=== PATIENT | female | born 1995 | race Caucasian/White ===

== ENCOUNTER 2019-05-21 13:52 | Outpatient (CLI) | payer BC, SELFPAY ==
[2019-05-21 14:39] LABS: HCT 38.8 % (36.0-46.0); HGB 13.2 g/dL (12.0-15.5); Mean Corpuscular Hemoglobin 30.3 pg (27.0-33.0); Mean Platelet Volume 9.6 fL (8.0-11.0); Platelet Count 292 x1000/uL (130-400); RBC 4.36 m/cumm (4.00-5.20); RBC Distribution Width 13.2 % (11.7-14.6); White Blood Cell Count 6.61 k/cumm (4.4-10.8)
[2019-05-21 15:28] LABS: ALT 19 U/L (14-59); AST 12 U/L (15-37); Albumin 3.9 g/dL (3.4-5.0); Alkaline Phosphatase 58 U/L (46-116); Anion Gap 9.3 mmol/L (3-11); BUN 15 mg/dL (7-18); Bilirubin, Total 0.3 mg/dL (0.2-1.0); CO2 27.7 mmol/L (21.0-32.0); CREATININE 0.49 mg/dL (0.55-1.02); Calcium 8.8 mg/dL (8.5-10.1); Chloride 101 mmol/L (98-107); Glucose 99 mg/dL (70-100); Potassium 4.1 mmol/L (3.5-5.1); Sodium 138 mmol/L (136-145); Total Protein 6.9 g/dL (6.4-8.2)
== END 2019-05-21 14:12 ==
PROVIDERS: PCP Nurse Practitioner Family; Visit Provider Obstetrics & Gynecology Gynecology
DX: R50.9 Fever, unspecified (principal); R11.0 Nausea; Z34.91 Encounter for supervision of normal pregnancy, unspecified, first trimester
CPT/HCPCS: 36415; 80053; 85027

== ENCOUNTER 2019-05-22 16:53 | Outpatient (REF) | payer BC, SELFPAY | END 2019-05-22 17:13 | LOC: LBN 16:53 | PROVIDERS: PCP Nurse Practitioner Family; Visit Provider Advanced Practice Midwife | DX: Z34.91 Encounter for supervision of normal pregnancy, unspecified, first trimester (principal) | CPT/HCPCS: 87086 ==

== ENCOUNTER 2019-06-06 13:56 | Outpatient (CLI) | payer BC, SELFPAY ==
[2019-06-07 11:13] LABS: Hepatitis B Surface Ag Negative (NEGAT)
[2019-06-07 12:05] LABS: Hepatitis C Ab w Rflx HCV PCR Negative (NEGAT)
[2019-06-07 12:37] LABS: HIV-1/2 Ag & Ab Screen Negative (NEGAT)
[2019-06-07 13:55] LABS: Rubella IgG Ab (UVM) Positive; Varicella IgG Antibody Negative
== END 2019-06-06 14:16 ==
PROVIDERS: PCP Nurse Practitioner Family; Visit Provider Advanced Practice Midwife
DX: Z34.91 Encounter for supervision of normal pregnancy, unspecified, first trimester (principal); Z11.4 Encounter for screening for human immunodeficiency virus [HIV]; Z11.59 Encounter for screening for other viral diseases; Z01.84 Encounter for antibody response examination
CPT/HCPCS: 36415; 86787; 86803; 86850; 86900; 86901; 87340; 87389; 84443; 86762

== ENCOUNTER 2019-07-18 00:34 | Outpatient (CLI) | payer BC, SELFPAY ==
--- NOTE | 2019-07-18 14:11 | DI.US_ITS ---
EXAM: US OB 2-3 TRIMESTER CLINICAL HISTORY: ROUTINE PNC, Z34.90 TECHNIQUE: Ultrasound performed using standard protocol. OB ultrasound was performed utilizing 2nd trimester protocol. COMPARISON: ABDOMEN ULTRASOUND (P) from 09/17/2015 FINDINGS: biometry is consistent with gestational age of 18 weeks 2 days and EDC of 12/17/2019. Placenta is anterior with no evidence of placenta previa. There is visually a normal quantity of amniotic fl uid. anomaly screen is within normal limits as per the attached checklist. cardiac acti vity observed at a rate of 145 BPM.
== END 2019-07-18 00:54 ==
PROVIDERS: Visit Provider Advanced Practice Midwife
DX: Z34.92 Encounter for supervision of normal pregnancy, unspecified, second trimester (principal)
CPT/HCPCS: 76805

== ENCOUNTER 2019-07-19 08:43 | Outpatient (CLI) | payer BC, SELFPAY ==
[2019-07-19 09:04] LABS: Kit/Specimen SENT
== END 2019-07-19 09:03 ==
PROVIDERS: Visit Provider Advanced Practice Midwife
DX: Z34.92 Encounter for supervision of normal pregnancy, unspecified, second trimester (principal); Z36.89 Encounter for other specified antenatal screening
CPT/HCPCS: 36415

== ENCOUNTER 2019-09-24 15:10 | Outpatient (CLI) | payer BC, SELFPAY ==
[2019-09-24 15:35] LABS: HCT 38.1 % (36.0-46.0); Mean Corp. HGB Concentration 34.1 g/dL (32.0-36.0); Mean Corpuscular Hemoglobin 31.1 pg (27.0-33.0); Mean Corpuscular Volume 91.1 fL (80-95); Mean Platelet Volume 9.6 fL (8.0-11.0); Platelet Count 235 x1000/uL (130-400); RBC 4.18 m/cumm (4.00-5.20); RBC Distribution Width 13.4 % (11.7-14.6); White Blood Cell Count 8.56 k/cumm (4.4-10.8)
[2019-09-24 15:43] LABS: Glucose,1 Hr (Glucola) 70 mg/dL (80-140)
== END 2019-09-24 15:30 ==
PROVIDERS: PCP Nurse Practitioner Family; Visit Provider Advanced Practice Midwife
DX: Z34.92 Encounter for supervision of normal pregnancy, unspecified, second trimester (principal)
CPT/HCPCS: 36415; 82950; 85027

== ENCOUNTER 2019-11-18 00:01 | Inpatient (IN) | payer BC, SELFPAY ==
[2019-11-18 02:15] LABS: HCT 37.7 % (36.0-46.0); HGB 13.2 g/dL (12.0-15.5); Mean Corpuscular Hemoglobin 31.1 pg (27.0-33.0); Mean Corpuscular Volume 88.9 fL (80-95); Mean Platelet Volume 11.1 fL (8.0-11.0); Platelet Count 241 x1000/uL (130-400); RBC 4.24 m/cumm (4.00-5.20); RBC Distribution Width 12.7 % (11.7-14.6); White Blood Cell Count 10.07 k/cumm (4.4-10.8)
--- NOTE | 2019-11-18 04:01 | HPE_ITS ---
Date of service: 11/18/19 Time of Service: 04:02 Assessment and Plan Assessment and plan (1) Fetus or affected by transverse lie during labor and delivery: Status: Acute Assessment and plan: Patient has been consented for delivery risk and benefits of the procedure were discussed with patient and her . Plan is to proceed with a low transverse delivery. (2) labor: Status: Acute Assessment and plan: Patient will receive azithromycin in addition to c efazolin prior to her surgery. GBS status is unknown and will be tested at this time. Qualifiers: labor trimester: third trimester labor delivery status: without delivery Qualified Code(s): O60.03 - labor without delivery, t hird trimester History of Present Illness History of Present Illness Chief Complaint: Early active labor at 35.2 weeks EGA, transverse presentation Narrative: Patient is a 24-year-old G1, P0 female currently at 35 W2D EGA by a first arrest of pelvic ultrasound who presents in early active labor with spontaneous rupture membranes of clear amniotic fluid at 35.2 weeks EGA. On on admission the vaginal exam was worrisome for a non-vertex presentation bedside ultrasound confirmed transverse lie with spine down and head to the maternal left. Subjectively low amniotic fluid. After discussion with the patient regarding the risks of a transverse presentation in active labor she was consented for a low transverse delivery. I reviewed the risks of the procedure including the risk of infection damage to surrounding structures including ureters bowel bladder the risk of a alina to the baby skin at the time of delivery. Informed consent was obtained and her questions were answered. Review of Systems Constitutional Constitutional: Reports system reviewed and no additional complaints, except as documented Respiratory Respiratory: Reports system reviewed and no additional complaints, except as documented Gastrointestinal Comments: Patient had sips of water early in the evening Genitourinary Genitourinary: Reports system reviewed and no additional complaints, except as documented Musculoskeletal Musculoskeletal: Reports system reviewed and no additional complaints, except as documented Integumentary/Breasts Skin/Breast: Reports system reviewed and no additional complaints, except as d ocumented Psychiatric Psychiatric: Reports system reviewed and no additional complaints, except as documented [facility] Medical History (Updated 11/18/19 @ 04:08 by Daniela Russell MD) Anxiety (Acute) Arthralgia (Acute) Chronic fatigue and malaise (Acute) onset 19yo. No clear etiology. [place] [facility] [place] Depo-Provera contraceptive status (Acute 11/05/15) Depression (Chronic 01/28/16) Dysmenorrhea (Resolved) 2013. Onset after she changed from Implanon to Nexplanon. 10/06/2015 Nexplanon out. Started DepoProvera with resolution of bleeding and sx. Dyspareunia (Resolved) Sx improved after Nexplanon removed. Family history of blood clots (Chronic) Mother had PE neg w/u hypercoagulable state Fetus or affected by transverse lie during labor and delivery (Acute) GERD (gastroesophageal reflux disease) (Acute) medications have not been entirely effective History of myocarditis (Chronic) History of pericarditis (Chronic) Insomnia, unspecified (Acute 10/22/15) Trazodone did not work well in the past Joint swelling (Acute) Intermittent Low back pain, non-specific (Acute) Intermittent issue, responds well to muscle relaxant & PT Migraine (Acute) Migraine without aura and without status migrainosus, not intractable (Acute) 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 ? multifactorial. 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 Neuro- ophthalmology consult & brain MRI 09/2013 which was normal per radiology report Tobacco abuse (Acute 01/29/18) Visual field loss (Acute 09/10/15) R eye Surgical History Neck surgery Vein reconstruction at 1 year old Social History (Updated 04/23/18 @ 09:15 by Darcy Montalvo RN) Smoking/Tobacco Use Status: Current-Occasional Drug use: Never History History 1 Para 0 Hx # Term Pregnancies 0 Multiple births 0 Hx # Pregnancies 0 Ectopic pregnancies 0 AB induced 0 Hx Number of Living Children 0 AB spontaneous 0 Meds Home Medications and Allergies Home Medications Medication Instructions Recorded Confirmed Type prenat.vits,raghavendra,ntr-[id number] 1 tab PO DAILY 05/22/19 11/18/19 History Allergies Allergy/AdvReac Type Severity Reaction Status Date / Time capsaicin AdvReac Severe burning/itc Verified 10/08/19 16:00 ivania Exam Const General: no acute distress Resp Effort & Inspection: normal respiratory effort Auscultation: clear to auscultation bilaterally Cardio Rate: regular rate Rhythm: regular rhythm Manual OB Exam: dilated 3, effaced 50% and other (Transverse lie) Amniotic Fluid: clear Skin General skin exam: no rashes or lesions noted Extrem General: normal to inspection, full ROM and capillary refill normal Results Labs Result diagrams: 11/18/19 02:00 Labs: Laboratory Results - last 24 hr 11/18/19 11/18/19 02:00 02:00 WBC 10.07 RBC 4.24 Hgb 13.2 Hct 37.7 MCV 88.9 MCH 31.1 MCHC 35.0 RDW 12.7 Plt Count 241 MPV 11.1 H Patient ABO/Rh A Positive Antibody Screen Negative COVID-19 Screening Traveled to [place] from one of the affected countries or regions?: NO Recent travel in the [place] within the last 8 weeks?: No Recent out of the country travel within the last 8 weeks?: No Exposure or possible exposure to illness during travel?: No Had IN PERSON contact w/suspected or confirmed C-19 person: No Have you had the following symptoms in the past few days?: No
[2019-11-18] MEDS: AZITHROMYCIN 250 MG in Normal Saline 250 ML IVPB (04:05)
[2019-11-18] MEDS: Sodium Citrate 30 ML CUP PO (04:06)
[2019-11-18] MEDS: ceFAZolin 2 GM/50 ML BAG IVPB (04:55)
--- NOTE | 2019-11-18 05:34 | PLAC_PTH ---
PATIENT: Bernie Shields LOC: OBS U#:[id number] AGE/SX: 24/F ROOM: OBS.303 RE11/18/[address]: Daniela Russell : 1995 BED: A DIS: 11/22/2019 SPEC #: [id number] RECD: 11/18/19 16:26 STATUS: JALEN REQ #: [id number] CHRIS: 11/18/19 05:[address]: Stacey Erwin DEPT: Surgical Specimen RECD BY: Bill Morgan ENTERED: 11/18/19 16:30 SP TYPE: PLAC OTHR DR: Kelley Peña APRN Tissues: 1 - PLACENTA (3RD TRIMESTER) Procedures: GROSS AND MICRO LEVEL 5 Comments: [id number]
[2019-11-18] MEDS: Ketorolac 30 MG/ML VIAL IVP ×3 (07:50→19:49)
[2019-11-18] MEDS: Ondansetron 4 MG/2 ML VIAL IVP (07:50)
[2019-11-18] MEDS: Normal Saline Flush 10 ML SYR IVP ×3 (07:51→19:50)
[2019-11-18] MEDS: Lactated Ringers 1,000 ML 200 ML IV (11:30)
[2019-11-18 18:34] LABS: COVID-19 RT-PCR Result Negative (Negative)
[2019-11-19] MEDS: Ketorolac 30 MG/ML VIAL IVP (02:29)
[2019-11-19] MEDS: Normal Saline Flush 10 ML SYR IVP (02:30)
[2019-11-19 07:21] LABS: HCT 39.4 % (36.0-46.0); HGB 13.1 g/dL (12.0-15.5); Mean Corp. HGB Concentration 33.2 g/dL (32.0-36.0); Mean Corpuscular Hemoglobin 30.4 pg (27.0-33.0); Mean Corpuscular Volume 91.4 fL (80-95); Mean Platelet Volume 11.2 fL (8.0-11.0); Platelet Count 212 x1000/uL (130-400); RBC 4.31 m/cumm (4.00-5.20); RBC Distribution Width 13.4 % (11.7-14.6)
[2019-11-19] MEDS: oxyCODONE 5 mg/Acetaminophen 325 mg TAB PO ×4 (07:56→23:20)
--- NOTE | 2019-11-19 09:07 | W.PM.OP ---
Date of service: 11/18/19 Time of Service: 09:07 Operative Note Operative Note DATE OF PROCEDURE: 11/18/19 PRE-OP DIAGNOSIS: Intrauterine at 35.2 weeks EGA. Transverse lie POST-OP DIAGNOSIS: same PROCEDURE: Unscheduled low transverse delivery SURGEON: Daniela Russell [employer]OX STORAGE WORKER: Stacey Erwin ANESTHESIA: spinal ESTIMATED BLOOD LOSS: 500 PATHOLOGY: other (Placenta to pathology) COMPLICATIONS: None Patient was transported to: floor Patient's condition: stable Indications: 24-year-old female with spontaneous rupture membranes at 35+ W EGA. On presentation to the center she had confirmation of transverse lie spine head to the maternal left. Findings: Viable female infant who will be named Maricruz weighing 4 pounds 15 ounces (2230 g) Apgars 3 at 1 minute 6 at 5 minutes 9 at 10 minutes. Arterial blood gas pH 7.29, PCO2 56 PO2 55 base excess 0.4. Normal placenta normal uterus normal adnexa Procedure Description: Patient was taken to the operating room suite placed in the supine position and spinal anesthesia was administered without difficulty. Patient was placed in the dorsal supine position with a leftward tilt Tyler catheter was inserted to gravity drainage her vagina was prepped with Betadine and her abdomen was prepped ChloraPrep. She receives both cefazolin and azithromycin prior to skin incision. Once a adequate level of anesthesia was obtained a Pfannenstiel skin incision was made with a scalpel and the underlying subcutaneous tissue dissected with Bovie electrocautery to the level of the rectus fascia. Rectus fascia was nicked in the midline and the fascial incision was extended laterally with curved Morrell scissors. The rectus muscles were in the midline and the peritoneum was entered bluntly and the peritoneal incision extended laterally bluntly. A bladder blade was placed into the abdomen to retract the bladder from the operative field and a Metzenbaum scissors was used to incise the serosa of the uterus of the lower uterine segment and the bladder flap created digitally. Bladder blade was then repositioned and the bladder was retracted away from the operative field. Scalpel was used to incise the lower uterine segment in a transverse fashion. Upon entry into the uterine cavity the uterine incision was extended bluntly. The presenting part was arm. A gloved hand was placed into the uterus and attempt was made to deliver the head. However the head did not descend when corrected by delivering hand. The pelvic bones were located and the position was rotated to breech spine up and the buttocks and lower extremities were delivered without difficulty. Followed by a trunk and head. The cord was doubly clamped and cut and the infant was handed off to the waiting pediatric team. Segment of cord was obtained and saved for cord gas analysis. The placenta was delivered the uterus was exteriorized and cleared of all clots and debris. The uterine incision was was reapproximated with a running lock suture of 0 Vicryl followed by a second imbricating suture of 0 Vicryl. It was hemostatic at the completion of the procedure. The uterus was returned to the abdomen and paracolic gutters cleared of all clots and debris's. In the area of bleeding was noted along the left lateral margin of the uterus and that was controlled with interrupted suture of 0 Vicryl. Bladder flap was inspected as was the abdominal wall and noted be hemostatic. Final inspection of the uterine incision showed it to be hemostatic. The peritoneum was closed with running suture of 2-0 Vicryl followed by a closure of the rectus fascia using 0 Vicryl extending from the lateral margins and overlapping in the midline. Subcutaneous tissue was irrigated noted be hemostatic and reapproximated with 2-0 Vicryl in a running fashion. The skin was reapproximated with subcuticular closure using 4-0 Vicryl. Uterus massaged for any remaining clots and debris's and the patient was transferred to the recovery area in stable condition. All sponge lap needle counts are correct x2.
[2019-11-19] MEDS: Ibuprofen 600 MG TAB PO (15:35)
[2019-11-20] MEDS: Ibuprofen 600 MG TAB PO ×4 (01:37→20:01)
[2019-11-20] MEDS: oxyCODONE 5 mg/Acetaminophen 325 mg TAB PO ×5 (04:00→21:56)
[2019-11-20] MEDS: Docusate Sodium 100 MG CAP PO ×2 (13:49→21:56)
[2019-11-21] MEDS: oxyCODONE 5 mg/Acetaminophen 325 mg TAB PO ×5 (02:06→20:22)
[2019-11-21] MEDS: Ibuprofen 600 MG TAB PO ×3 (02:07→20:22)
[2019-11-21] MEDS: Docusate Sodium 100 MG CAP PO ×2 (08:51→20:22)
[2019-11-21] MEDS: Patch Removal TD (08:51)
[2019-11-22] MEDS: oxyCODONE 5 mg/Acetaminophen 325 mg TAB PO ×4 (00:34→14:21)
[2019-11-22] MEDS: Ibuprofen 600 MG TAB PO ×2 (02:51→10:33)
[2019-11-22] MEDS: Docusate Sodium 100 MG CAP PO (10:32)
--- NOTE | 2019-11-22 12:54 | W.PM.PROGNOT ---
Date of Service Date of service: 11/22/19 Time of Service: 12:55 Assessment and Plan Assessment and plan (1) S/P section: Status: Acute Assessment and plan: s/p section for transverse lie. Satisfactory postoperative progress. Discharge home today. Subjective Subjective Interval history since last seen: Doing well. Pain well controlled. Ambulatory Tolerating regular diet. Exam GI Other: Abdomen is soft and appropriately tender. Incision is C/D/I Objective Objective Clinical Data: Vital Signs Pain Level 4 11/22/19 10:33 Laboratory Results WBC 10.20 k/cumm (4.4-10.8) 11/19/19 06:55 RBC 4.31 m/cumm (4.00-5.20) 11/19/19 06:55 Hgb 13.1 g/dL (12.0-15.5) 11/19/19 06:55 Hct 39.4 % (36.0-46.0) 11/19/19 06:55 MCV 91.4 fL (80-95) 11/19/19 06:55 MCH 30.4 pg (27.0-33.0) 11/19/19 06:55 MCHC 33.2 g/dL (32.0-36.0) 11/19/19 06:55 RDW 13.4 % (11.7-14.6) 11/19/19 06:55 Plt Count 212 x1000/uL (130-400) 11/19/19 06:55 MPV 11.2 fL (8.0-11.0) H 11/19/19 06:55 Coronavirus (PCR) Cancelled 11/18/19 Unknown Patient ABO/Rh A Positive 11/18/19 02:00 Antibody Screen Negative 11/18/19 02:00
== END 2019-11-22 14:40 | disposition home or self-care (01) | DRG 788 ==
PROVIDERS: Admitting Provider Advanced Practice Midwife; PCP Nurse Practitioner Family; Visit Provider Obstetrics & Gynecology Gynecology
PROC: 10D00Z1 Extraction of Products of Conception, Low, Open Approach (ICD-10-PCS; CPT 59514; principal; 2019-11-18 05:00)
DX: O75.89 Other specified complications of labor and delivery (principal); Z37.0 Single live birth; O64.8XX0 Obstructed labor due to other malposition and malpresentation, not applicable or unspecified; O60.14X0 Preterm labor third trimester with preterm delivery third trimester, not applicable or unspecified; O99.824 Streptococcus B carrier state complicating childbirth; Z3A.35 35 weeks gestation of pregnancy; K59.00 Constipation, unspecified; O92.29 Other disorders of breast associated with pregnancy and the puerperium
CPT/HCPCS: 59514; 36415; 85027; 86850; 86900; 86901; 99233; NC; U0003; 87081; 88307; J0456; J0690; J1885; J2405; J2590; J3010; J3490

== ENCOUNTER 2019-12-24 15:42 | Outpatient (REF) | payer BC, SELFPAY ==
--- NOTE | 2019-12-24 15:00 | PAPFT_PTH ---
PATIENT: Bernie Shields LOC: [facility] U#:[id number] AGE/SX: 24/F ROOM: RE12/24/[address]: Daniela Russell : 1995 BED: DIS: 12/24/2019 SPEC #: [id number] RECD: 12/25/19 12:57 STATUS: JALEN REZeynep #: [id number] CHRIS: 12/24/19 15:[address]: Daniela Russell DEPT: [facility] Cytology RECD BY: Olga Moody ENTERED: 12/25/19 12:57 SP TYPE: PAPFT OT DR: Kelley Peña, TIERNEY Tissues: 1 - CX/ENDOCX FOR PAP SMEARS Procedures: PAP THIN PREP/UVM Screening Comments: [id number]
== END 2019-12-24 16:02 ==
LOC: LBN 15:42
PROVIDERS: PCP Nurse Practitioner Family; Visit Provider Obstetrics & Gynecology Gynecology
DX: Z12.4 Encounter for screening for malignant neoplasm of cervix (principal)
CPT/HCPCS: 88142

== ENCOUNTER 2022-01-15 02:18 | Emergency (ER) | payer BC, SELFPAY ==
[2022-01-15 02:27] VITALS: BP 118/76; PULSE 71; RESP 16; TEMP 36; O2SAT 100
--- NOTE | 2022-01-15 02:40 | ED.GENADUL_ITS ---
Discharge Plan Disposition Patient Disposition: HOME Condition: Stable Discharge Details Clinical Impression: UTI (urinary tract infection) Primary Care Provider: Kelley Peña ED Provider: Ant Serrano Home Meds and New Rx's Prescriptions: New nitrofurantoin monohyd/m-cryst [Macrobid] 100 mg capsule 100 mg PO Q12H 5 Days Qty: 10 0RF Rx Instructions: must administer with a meal/food phenazopyridine [Pyridium] 200 mg tablet 200 mg PO TID PRNQty: 6 0RF Discharge Instructions Instructions: Urinary Tract Infection in Women (ED) Additional Instructions: If you are not improving this week follow up with your primary care provider If you feel more ill, have fevers or severe worsening pain return to the emergency department Medical Decision Making 26 yo female who states she used to get uti's monthly but hasn't had one in about 2 years comes in with cc of feeling like she has a uti. She states since last night she has had burning with urination, feeling like she has to urinate more often. Denies fevers,chills, vomit. She appears well on exam in no distress. She has a soft abdomen with no tenderness other than mild tenderness in the suprapubic area and has no cva tenderness. Suspect cystitis, no findings to suggest pyelo or sepsis or kidney stones, will obtain UA and poc test. urine shows likely uti, she remains stable. Will start macrobid and advised if not improving this week to see pcp and return precautions given Differential Diagnosis Differential Diagnosis: cystitis, pyelo, urethritis Lab Data Lab results reviewed: Yes I reviewed the patient's lab results. HPI General Mode of arrival: ambulatory . Date/Time Provider Initiated Documentation: 01/15/22 02:20 . Limitations to Documentation: no limitations . Information obtained by: patient . History of Present Illness 26 year old F presents to the emergency department with the chief complaint of burning when urinating, described as moderate, Patient started experiencing this day(s) (1) and it has been intermittent (only while urinating). No relieving factors improve symptom(s), No exacerbating factors reported . Patient did receive the following treatments prior to arrival, none Related Data Home Medications Medication Instructions Recorded Confirmed nitrofurantoin 100 mg PO Q12H 5 days #10 caps 01/15/22 monohydrate/macrocrystals 100 mg capsule (Macrobid) phenazopyridine 200 mg tablet 200 mg PO TID PRN 6 doses #6 tabs 01/15/22 (Pyridium) Previous Rx's Medication Instructions Recorded nitrofurantoin 100 mg PO Q12H 5 days #10 caps 01/15/22 monohydrate/macrocrystals 100 mg capsule (Macrobid) phenazopyridine 200 mg tablet 200 mg PO TID PRN 6 doses #6 tabs 01/15/22 (Pyridium) Allergies Allergy/AdvReac Type Severity Reaction Status Date / Time capsaicin AdvReac Severe burning/itc Verified 12/24/19 14:31 ivania General Stated Complaint: Urinary CAPRI: 4 Review of Systems All systems reviewed & are unremarkable except as noted in HPI and below Constitutional Constitutional: Denies chills, Denies fever(s) and Denies weakness Cardiovascular Cardiovascular: Denies chest pain and Denies dyspnea Respiratory Respiratory: Denies cough and Denies dyspnea Gastrointestinal Gastrointestinal: Denies abdominal pain, Denies nausea and Denies vomiting Integumentary/Breasts Skin/Breast: Denies rash Neurologic Neurologic: Denies weakness PFSH All Active Problems (Updated 01/15/22 @ 03:21 by Ant Serrano MD) UTI (urinary tract infection) (Acute) Migraine (Acute) Anxiety (Acute) GERD (gastroesophageal reflux disease) (Acute) medications have not been entirely effective 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 ? multifactorial. Arthralgia (Acute) Depo-Provera contraceptive status (Acute 11/05/15) Nexplanon prior to Depo-Provera. 4 years of use prior to . 11/2019 will restart Depo-Provera . Patient advised 1500 mg of calcium per day Depression (Chronic 01/28/16) 11/2019. 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 Neuro- ophthalmology consult & brain MRI 09/2013 which was normal per radiology report Tobacco abuse (Acute 01/29/18) Visual field loss (Acute 09/10/15) R eye Medical History (Updated 01/15/22 @ 03:21 by Ant Serrano MD) Dysmenorrhea 2013. Onset after she changed from Implanon to Nexplanon. 10/06/2015 Nexplanon out. Started DepoProvera with resolution of bleeding and sx. Dyspareunia Sx improved after Nexplanon removed. Surgical History (Updated 12/24/19 @ 15:56 by Daniela Russell MD) Neck surgery Vein reconstruction at 1 year old S/P section 11/18/2019 low transverse delivery at 35.2 weeks EGA for SROM and transverse lie. Cesar Alcantara. Family History Mother Migraine Pulmonary embolism Father No problems noted. Sister No problems noted. Social History (Updated 11/29/19 @ 16:41 by Daniela Russell MD) Smoking/Tobacco Use Status: Former Tobacco Use Smoking risk assessment performed?: Yes Drug use: Never Household members: spouse and other Details: Javier Estevez Number of Children: 1 current occupation: [employer] Do you feel safe at home: Yes Do you feel safe in your relationship?: Yes History History 1 Para 0 Hx # Term Pregnancies 0 Multiple births 0 Hx # Pregnancies 1 Ectopic pregnancies 0 AB induced 0 Hx Number of Living Children 0 AB spontaneous 0 Past Pregnancies Del. Date GA/Weeks # Outcome Route Wgt Sex Labor Lgth Anesthes ia Location Prov Complic 11/18/19 35 No Successful 2239.612 g Female 6H 18M Dr. Russell Delivery Date: 11/18/19 Last Updated by: Daniela Russell M.D. SROM with transverse lie. Not amenable to external cephalic version. Maricruz Exam Const General: no acute distress Orientation: alert HENMT Head: normal to inspection Ears: external ears normal General nose exam: external nose normal Mouth: moist mucous membranes Eyes General: appearance normal, both eyes and all related structures Neck Neck: normal visual inspection Resp Effort & Inspection: normal respiratory effort and able to speak in complete sentences Cardio Rate: regular rate General: No CVA tenderness Skin General skin exam: no rashes or lesions noted Neuro General: patient alert and patient oriented x3 Extrem General: normal to inspection Psych Mental Status: mental status grossly normal Course Vital Signs Vital signs: Vital Signs Temperature 36.0 C L 01/15/22 02:27 Pulse 71 01/15/22 02:27 Respiratory Rate 16 01/15/22 02:27 Blood Pressure 118/76 01/15/22 02:27 Pulse Oximetry 100 01/15/22 02:27 Temperature 36.0 C L 01/15/22 02:27 Temperature Source Skin 01/15/22 02:27 Pulse 71 01/15/22 02:27 Respiratory Rate 16 01/15/22 02:27 Blood Pressure 118/76 01/15/22 02:27 Blood Pressure Position Sitting 01/15/22 02:27 Pulse Oximetry 100 01/15/22 02:27 Oxygen Delivery Method Room Air 01/15/22 02:27 Oxygen Flow Rate 0 01/15/22 02:27 Pain Level 6 01/15/22 02:27
[2022-01-15 02:59] LABS: Bilirubin Negative (Negative); Blood Moderate (Negative); Clarity Sl Cloudy (Clear); Glucose Negative (Negative); Ketones Negative (Negative); Leukocyte Esterase Large (Negative); Nitrite Negative (Negative); Urobilinogen 0.2 EU/dL (Up TO 0.2)
[2022-01-15 03:09] LABS: Bacteria Moderate HPF (Negative); C & S Indicated? Yes; Casts Negative LPF (Negative); Crystals Negative HPF (Negative); Epithelial Cells Few HPF (Negative); Mucus Negative (Negative); WBC >50 HPF (0-5)
[2022-01-15] MEDS: MacroBID 100 MG CAP PO (03:19)
[2022-01-15] MEDS: Phenazopyridine 200 MG TAB PO (03:24)
== END 2022-01-15 03:27 | disposition home or self-care (01) ==
PROVIDERS: Emergency Provider Emergency Medicine; PCP Nurse Practitioner Family
DX: N39.0 Urinary tract infection, site not specified (principal); B96.20 Unspecified Escherichia coli [E. coli] as the cause of diseases classified elsewhere
CPT/HCPCS: 87077; 99283; 81003; 81015; 87086; 87186

== ENCOUNTER 2022-07-19 02:05 | Outpatient (CLI) | payer BC, SELFPAY ==
[2022-07-19 11:50] LABS: Panorama Kit Sent via Fed Ex
[2022-07-19 12:06] LABS: Abs Immature Grans 0.05 10^3/uL (0.0-0.06); Absolute Basophil Count 0.03 10^3/uL (0.0-0.2); Absolute Eosinophil Count 0.09 10^3/uL (0.0-0.7); Absolute Lymphocyte Count 1.39 10^3/uL (1.2-3.4); Absolute Monocyte Count 0.66 10^3/uL (0.1-0.8); Absolute Neutrophil Count 3.77 10^3/uL (1.2-6.7); Basophils % 0.5; Eosinophils % 1.5; HGB 12.8 g/dL (11.2-15.7); Immature Grans % 0.8; Lymphocytes % 23.2; MCH 30.7 pg (27.0-33.0); MCHC 34.6 % (32.0-36.0); MCV 89 fL (80-95); MPV 9.6 fL (8.0-11.0); Platelet Count 265 10^3/uL (130-400); RBC 4.17 10^6/uL (3.93-5.22); RDW 12.4 % (11.7-14.6); RDW-SD 40.4 fL; WBC 5.99 10^3/uL (4.4-10.8)
[2022-07-20 10:10] LABS: Hepatitis B Surface Ag Negative (Negative)
[2022-07-20 10:38] LABS: HIV-1/2 Ag & Ab Screen Negative (Negative)
[2022-07-20 10:41] LABS: Hepatitis C Ab w Rflx HCV PCR Negative (Negative)
[2022-07-20 13:09] LABS: Rubella IgG Ab (UVM) Positive (See Note); Varicella IgG Antibody Negative (See Note)
[2022-07-20 18:45] LABS: Syphilis IgG w/Reflex Nonreactive (Nonreactive)
== END 2022-07-19 02:06 | disposition home or self-care (01) ==
LOC: LBO 02:05
PROVIDERS: Advanced Practice Midwife; PCP Nurse Practitioner Family; Visit Provider Advanced Practice Midwife
DX: Z34.91 Encounter for supervision of normal pregnancy, unspecified, first trimester
CPT/HCPCS: 36415; 86787; 86803; 86850; 86900; 86901; 87340; 87389; 85025; 86762; 86780

== ENCOUNTER 2022-11-11 01:31 | Outpatient (CLI) | payer BC, SELFPAY ==
[2022-11-11 16:15] LABS: Abs Immature Grans 0.45 10^3/uL (0.0-0.06); Absolute Basophil Count 0.07 10^3/uL (0.0-0.2); Absolute Eosinophil Count 0.19 10^3/uL (0.0-0.7); Absolute Lymphocyte Count 1.63 10^3/uL (1.2-3.4); Absolute Monocyte Count 0.99 10^3/uL (0.1-0.8); Absolute Neutrophil Count 6.03 10^3/uL (1.2-6.7); Basophils % 0.7; HCT 34.9 % (36.0-46.0); HGB 12.6 g/dL (11.2-15.7); Immature Grans % 4.8; Lymphocytes % 17.4; MCH 32.1 pg (27.0-33.0); MCHC 36.1 % (32.0-36.0); MCV 89 fL (80-95); MPV 9.7 fL (8.0-11.0); Monocytes % 10.6; Neutrophils % 64.5; Platelet Count 256 10^3/uL (130-400); RBC 3.92 10^6/uL (3.93-5.22); RDW 13.2 % (11.7-14.6); RDW-SD 43.1 fL; WBC 9.36 10^3/uL (4.4-10.8)
[2022-11-11 16:29] LABS: Glucose,1 Hr (Glucola) 122 mg/dL (80-140)
== END 2022-11-11 01:32 | disposition home or self-care (01) ==
LOC: LBO 01:32
PROVIDERS: PCP Nurse Practitioner Family; Visit Provider Obstetrics & Gynecology
DX: Z34.93 Encounter for supervision of normal pregnancy, unspecified, third trimester (principal); Z3A.28 28 weeks gestation of pregnancy
CPT/HCPCS: 36415; 82950; 85025

== ENCOUNTER 2022-12-13 05:34 | Outpatient (CLI) | payer BC, SELFPAY ==
[2022-12-13 05:42] VITALS: BP 122/73; PULSE 105; TEMP 36.9
[2022-12-13 05:43] VITALS: BP 122/73; PULSE 105; TEMP 36.9
--- NOTE | 2022-12-13 06:05 | W.PM.OBHPL1 ---
Date of service: 12/13/22 Time of Service: 06:05 Assessment and Plan Assessment and plan (1) PROM (premature rupture of membranes): Status: Acute Assessment and plan: PPROM at 33 2/7 weeks. Stable maternal assesment, cephalic presentation, not laboring. Plan transfer to [facility] for management and NICU services (2) : Status: Acute (3) History of : Status: Chronic Assessment and plan: prior LTCS at 35 weeks, desires Trial of Labor if possible OB-HPI Labor/Delivery History of Present Illness Reason for Visit: SROM Chief Complaint: Suspected Rupture of Membranes , Associated Signs and Symptoms of Suspected ROM: gush of fluid, pool positive, fern positive. RAMILA Calculator Estimated Delivery Date Method Current WG Current Estimate 01/29/23 LMP (Certain) 33w 2d Other Estimates 01/30/23 Ultrasound #1 33w 1d History of Present Expected Delivery Route/Plan Desires TOLAC - FOB/ - Anish (2nd child together) Specific Issues/Plan 1. 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 Declines Urine culture, UDS and GC CT due to cost 3. Desires cfDNA: 46XY 4. Varicella non-immune, discuss w/pt, offer vaccine 5. low - lying placenta ( 2 cms from os)- Discussed with Benrie, Scheduled repeat US at 28 weeks- 5a. US at , placenta 1.7 cms from OS- repeat US at 32 weeks- scheduled at [facility] Narrative: Patient called with gush of fluid at 0500, blood tinged fluid. Baby active. Irregular tightening. FHT 125, moderate variablity, category 1. U/S, VTX, KARLENE 8.74 Informed Consent Informed Consent: Other (transfer to [facility]) Review of Systems Constitutional Constitutional: Reports system reviewed and no additional complaints, except as documented, Denies body ache(s) and Denies chills ENT Ears, Nose, Mouth, and Throat: Reports system reviewed and no additional complaints, except as documented Cardiovascular Cardiovascular: Reports system reviewed and no additional complaints, except as documented and Denies chest pain Respiratory Respiratory: Reports system reviewed and no additional complaints, except as documented, Denies chest congestion and Denies cough Gastrointestinal Gastrointestinal: Reports system reviewed and no additional complaints, except as documented, Denies abdominal pain and Reports cramping Genitourinary Genitourinary: Reports as per HPI Musculoskeletal Musculoskeletal: Reports system reviewed and no additional complaints, except as documented Neurologic Neurologic: Reports system reviewed and no additional complaints, except as documented Psychiatric Psychiatric: Reports system reviewed and no additional complaints, except as documented PFSH All Active Problems (Updated 12/13/22 @ 06:18 by Amanda Valentine DO) History of (Chronic) LTCS at 35 weeks with PROM PROM (premature rupture of membranes) (Acute) UTI (urinary tract infection) during (Acute) Susceptible to varicella (non-immune), currently (Acute) (Acute) Migraine (Acute) Anxiety (Acute) Arthralgia (Acute) Depo-Provera contraceptive status (Acute 11/05/15) Nexplanon prior to Depo-Provera. 4 years of use prior to . 11/2019 will restart Depo-Provera . 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 Neuro-ophthalmology consult & brain MRI 09/2013 which was normal per radiology report Visual field loss (Acute 09/10/15) R eye Medical History (Updated 12/13/22 @ 06:18 by Amanda Valentine DO) Chronic fatigue and malaise onset 19yo. No clear etiology. 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 Depression (01/28/16) 11/2019. Stable EPDS=4 Dysmenorrhea 2013. Onset after she changed from Implanon to Nexplanon. 10/06/2015 Nexplanon out. Started DepoProvera with resolution of bleeding and sx. Dyspareunia Sx improved after Nexplanon removed. 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 ? multifactorial. Tobacco abuse (01/29/18) QUIT with first Surgical History (Updated 12/13/22 @ 06:18 by Amanda Valentine DO) Neck surgery Vein reconstruction at 1 year old S/P section 11/18/2019 low transverse delivery at 35.2 weeks EGA for SROM and transverse lie. Cesar Alcantara. Family History Mother Migraine Pulmonary embolism Rheumatoid arthritis Father Alopecia Social History Smoking/Tobacco Use Status: Former Tobacco Use Smoking risk assessment performed?: Yes Drug use: Never Household members: spouse and other Details: Javier Estevez Number of Children: 1 current occupation: [employer] Do you feel safe at home: Yes Do you feel safe in your relationship?: Yes History History 2 Para 0 Hx # Term Pregnancies 0 Multiple births 0 Hx # Pregnancies 1 Ectopic pregnancies 0 AB induced 0 Hx Number of Living Children 1 AB spontaneous 0 Past Pregnancies Del. Date GA/Weeks # Preg Succ Route Wgt Sex Labor Lgth Anesthesia Location Prov Complic 11/18/19 35 No 4 lb 15 oz Female 6H 18M Dr. Russell Delivery Date: 11/18/19 Last Updated by: Daniela Russell M.D. SROM with transverse lie. Not amenable to external cephalic version. Maricruz Meds Allergies and Home Medications Allergies Allergy/AdvReac Type Severity Reaction Status Date / Time capsaicin AdvReac Severe burning/itc Verified 12/12/22 15:57 ivania Home Medications Medication Instructions Recorded Confirmed Type vitamin with calcium 1 tab PO DAILY #90 tabs 05/27/22 12/12/22 Rx no.72-iron 27 mg-folic acid 1 mg tablet Exam Physical Exam Vital signs: Temp Pulse BP 98.4 F 105 H 122/73 12/13/22 05:42 12/13/22 05:42 12/13/22 05:42 Vital Signs Reviewed: Yes Constitutional Constitutional: no acute distress Detailed Labor and Delivery Exam Dilation: 0 Effacement (%): 50 station: 0 Consistency: medium Bell Score: Cervical Points Exam 0 1 2 3 Dilation Closed 1-2cm 3-4 cm 5-6cm Effacement 0-30% 40-50% 60-70% 80% Consistency Firm Medium Soft Station -3 -2 -1,0 +1,+2 Position Posterior Mid Anterior Amniotic Fluid: Bloody Pooling: Positive Ferning: Present Monitor Mode: External Fetus A Heart Rate Baseline: 125 Monitor Accelerations: Present Variability: Moderate (6-25 BPM) Presentation: Cephalic Categories: Category I Time of Membrane Rupture: 05:00 Assessment Note: Category 1 strip HEENT Exam HEENT Exam: Normal Neck Exam Neck Exam: Normal Respiratory Exam Respiratory Exam: Normal Detail Cardiovascular Exam Cardiovascular: Present RRR, S1 and S2 Abdominal Exam Abdominal Exam: Normal Extremities Exam Extremities Exam: Normal Additional findings Additional findings: Pool positive, bloody, fern positive. KARLENE 8 cm, cephalic Results Results Blood Type: A+ Rubella Status: Immune Lab Results: HIV, negative, Hep B neg, Hep C neg 1 hour GTT -122 Risk Assessment Risk for Shoulder Dystocia Historical/Initial OB: NEGATIVE FOR: Pelvic Abnormality, Pre- BMI>30, Previous Shoulder Dystocia or Previous Macrosomia Date/Initial: considering [facility] Risk for Pre-Eclampsia Date Initiated/Initials: 07/19/22 KH Yes, if one or more: NEGATIVE FOR: Hx Pre-E/Gest HTN, Chronic HTN, Multiple Gestation, Pre-gestational DM, Renal Disease, Systemic Lupus or APA Syndrome Yes, if 2 or more: NEGATIVE FOR: Nulliparity, Age>= 35 yrs, >10yr btwn pregnancies, BMI>30, ethinicty, Mother/Sister w/ Pre-E or Previous IUGR Risk for Post- Hemorrhage Initial: POSITIVE FOR: Known Clotting Deficiency; NEGATIVE FOR: Multiple Gestation, Previous PPH, Grand Multiparity or Anticoagulation Counseled re: Active Management: Yes (07/19/22) Date/Initials: 07/19/22 KH Risks Reviewed Risks Reviewed Upon Admission: Yes
--- NOTE | 2022-12-13 06:21 | W.PM.OBHPL1 ---
Date of service: 12/13/22 Time of Service: 06:23 OB-HPI Labor/Delivery History of Present Illness Reason for Visit: SROM Chief Complaint: Suspected Rupture of Membranes , Associated Signs and Symptoms of Suspected ROM: gush of fluid . RAMILA Calculator Estimated Delivery Date Method Current WG Current Estimate 01/29/23 LMP (Certain) 33w 2d Other Estimates 01/30/23 Ultrasound #1 33w 1d History of Present Expected Delivery Route/Plan Desires TOLAC - FOB/ - Anish (2nd child together) Specific Issues/Plan 1. 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 Declines Urine culture, UDS and GC CT due to cost 3. Desires cfDNA: 46XY 4. Varicella non-immune, discuss w/pt, offer vaccine 5. low - lying placenta ( 2 cms from os)- Discussed with Bernie, Scheduled repeat US at 28 weeks- 5a. US at , placenta 1.7 cms from OS- repeat US at 32 weeks- scheduled at [facility] All Active Problems (Updated 12/13/22 @ 06:18 by Amanda Valentine DO) History of (Chronic) LTCS at 35 weeks with PROM PROM (premature rupture of membranes) (Acute) UTI (urinary tract infection) during (Acute) Susceptible to varicella (non-immune), currently (Acute) (Acute) Migraine (Acute) Anxiety (Acute) Arthralgia (Acute) Depo-Provera contraceptive status (Acute 11/05/15) Nexplanon prior to Depo-Provera. 4 years of use prior to . 11/2019 will restart Depo-Provera . 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 Neuro-ophthalmology consult & brain MRI 09/2013 which was normal per radiology report Visual field loss (Acute 09/10/15) R eye Medical History (Updated 12/13/22 @ 06:18 by Amanda Valentine DO) Chronic fatigue and malaise onset 19yo. No clear etiology. 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 Depression (01/28/16) 11/2019. Stable EPDS=4 Dysmenorrhea 2013. Onset after she changed from Implanon to Nexplanon. 10/06/2015 Nexplanon out. Started DepoProvera with resolution of bleeding and sx. Dyspareunia Sx improved after Nexplanon removed. 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 ? multifactorial. Tobacco abuse (01/29/18) QUIT with first Surgical History (Updated 12/13/22 @ 06:18 by Amanda Valentine DO) Neck surgery Vein reconstruction at 1 year old S/P section 11/18/2019 low transverse delivery at 35.2 weeks EGA for SROM and transverse lie. Cesar Alcantara. Family History Mother Migraine Pulmonary embolism Rheumatoid arthritis Father Alopecia Social History Smoking/Tobacco Use Status: Former Tobacco Use Smoking risk assessment performed?: Yes Drug use: Never Household members: spouse and other Details: Javier Estevez Number of Children: 1 current occupation: [employer] Do you feel safe at home: Yes Do you feel safe in your relationship?: Yes History History 2 Para 0 Hx # Term Pregnancies 0 Multiple births 0 Hx # Pregnancies 1 Ectopic pregnancies 0 AB induced 0 Hx Number of Living Children 1 AB spontaneous 0 Past Pregnancies Del. Date GA/Weeks # Preg Succ Route Wgt Sex Labor Lgth Anesthesia Location Prov Complic 11/18/19 35 No 4 lb 15 oz Female 6H 18M Dr. Russell Delivery Date: 11/18/19 Last Updated by: Daniela Russell M.D. SROM with transverse lie. Not amenable to external cephalic version. Maricruz Meds Allergies and Home Medications Allergies Allergy/AdvReac Type Severity Reaction Status Date / Time capsaicin AdvReac Severe burning/itc Verified 12/12/22 15:57 ivania Home Medications Medication Instructions Recorded Confirmed Type vitamin with calcium 1 tab PO DAILY #90 tabs 05/27/22 12/12/22 Rx no.72-iron 27 mg-folic acid 1 mg tablet Exam Physical Exam Vital signs: Temp Pulse BP 98.4 F 105 H 122/73 12/13/22 05:42 12/13/22 05:42 12/13/22 05:42 Detailed Labor and Delivery Exam Bell Score: Cervical Points Exam 0 1 2 3 Dilation Closed 1-2cm 3-4 cm 5-6cm Effacement 0-30% 40-50% 60-70% 80% Consistency Firm Medium Soft Station -3 -2 -1,0 +1,+2 Position Posterior Mid Anterior Fetus A Time of Membrane Rupture: 05:00 Results Results Blood Type: A+ Rubella Status: Immune Ultrasound OB Ultrasound for KARLENE. Indication: KARLENE, position Total KARLENE: 8.74 Exam complete and Ultrasound for presentation. Indication: Gush of fluid Presentation: Cephalic. Exam complete. Risk Assessment Risk for Shoulder Dystocia Historical/Initial OB: NEGATIVE FOR: Pelvic Abnormality, Pre- BMI>30, Previous Shoulder Dystocia or Previous Macrosomia Increased Risk?: No Date/Initial: considering [facility] Delivery Plan @ 36wks: TOLAC Risk for Pre-Eclampsia Date Initiated/Initials: 07/19/22 Yes, if one or more: NEGATIVE FOR: Hx Pre-E/Gest HTN, Chronic HTN, Multiple Gestation, Pre-gestational DM, Renal Disease, Systemic Lupus or APA Syndrome Yes, if 2 or more: NEGATIVE FOR: Nulliparity, Age>= 35 yrs, >10yr btwn pregnancies, BMI>30, ethinicty, Mother/Sister w/ Pre-E or Previous IUGR Risk for Post- Hemorrhage Initial: POSITIVE FOR: Known Clotting Deficiency; NEGATIVE FOR: Multiple Gestation, Previous PPH, Grand Multiparity or Anticoagulation Counseled re: Active Management: Yes (07/19/22) Date/Initials: 07/19/22 Risks Reviewed Risks Reviewed Upon Admission: Yes
[2022-12-13] MEDS: Betamet Acet/Betamet Na Ph Inj. 30 MG/5 ML 12 MG IM (06:28)
[2022-12-13 06:37] VITALS: BP 122/73; PULSE 105; RESP 16; TEMP 36.9
--- NOTE | 2022-12-13 06:41 | W.PM.OBNL1 ---
Date of service: 12/13/22 Time of Service: 06:42 Informed Consent Informed Consent: Other (transfer to [facility] Contractions Contraction Frequency(min): None, irritability Fetus A Heart Rate Baseline: 125 Variability: Moderate (6-25 BPM) Categories: Category I FHR Rhythm: Regular Assessment and Plan Assessment and plan (1) PROM (premature rupture of membranes): Status: Acute Assessment and plan: at 33 weeks 2 days, premature, rupture of membranes for. Received betamethasone 1 dose. Ampicillin, and Zithromax will be hanging shortly. Transferred to [facility] for maternal- medicine and intensive care unit. All questions were answered. Transfer packet completed. Objective Temp Pulse Resp BP 98.4 F 105 H 16 122/73 12/13/22 06:37 12/13/22 06:37 12/13/22 06:37 12/13/22 06:37 Vital Signs Reviewed: Yes Subjective Interval history since last seen: Transfer center at [facility] notified. Transfer accepted by Dr. Johnna Guzman. Will arrange transport via ambulance with nurse present. Patient received 1 dose of betamethasone, 12 mg IM at 6 AM. Receiving ampicillin, 2 g, Zithromax, 500 mg x 1.
[2022-12-13 07:06] LABS: Abs Immature Grans 0.39 10^3/uL (0.0-0.06); Absolute Basophil Count 0.06 10^3/uL (0.0-0.2); Absolute Eosinophil Count 0.14 10^3/uL (0.0-0.7); Absolute Lymphocyte Count 1.24 10^3/uL (1.2-3.4); Absolute Monocyte Count 0.89 10^3/uL (0.1-0.8); Absolute Neutrophil Count 4.54 10^3/uL (1.2-6.7); Basophils % 0.8; Eosinophils % 1.9; HCT 36.7 % (36.0-46.0); HGB 12.6 g/dL (11.2-15.7); Immature Grans % 5.4; Lymphocytes % 17.1; MCH 31.3 pg (27.0-33.0); MCHC 34.3 % (32.0-36.0); MCV 91 fL (80-95); MPV 9.8 fL (8.0-11.0); Monocytes % 12.3; Neutrophils % 62.5; Platelet Count 216 10^3/uL (130-400); RBC 4.03 10^6/uL (3.93-5.22); RDW 13.5 % (11.7-14.6); RDW-SD 45.1 fL; WBC 7.26 10^3/uL (4.4-10.8)
--- NOTE | 2022-12-13 07:08 | NUR.NOTE ---
Nursing Note: Report given to [place] [facility] [place] at this time.
[2022-12-13] MEDS: AMPICILLIN SODIUM 2 GM in Normal Saline 100 ML IVPB (07:10)
[2022-12-13 07:31] LABS: Diff Comment Diff Reviewed; RBC Morphology Normal
[2022-12-13] MEDS: AZITHROMYCIN 500 MG in Normal Saline 250 ML 250 MG IVPB (07:43)
--- NOTE | 2022-12-13 08:39 | W.OBNST ---
Date of service: 12/13/22 Time of Service: 08:40 NST Evaluation Reason for NST Reasons for Nonstress Test: OTHER, SEE COMMENT Reason for NST Other: Possible premature rupture of membranes Gestational Age Gestational Age in Weeks and Days: 33 Weeks and 2Days Test and Monitor Explained Test/Monitor Explained: Test Explained, Monitor Explained and Patient Verbalized Understanding Vital Signs Blood Pressure: 122/73 Pulse: 105 Temperature: 98.4 F Urine Results Urine Protein: Negative Urine Ketones: Negative Urine Glucose: Negative Urine Blood: Negative NST Information Date on Monitor: 12/13/22 Time on Monitor: 05:41 NST Interventions: None NST Evaluation Patient States Movement: Present FHR Baseline: 135 Variability: Moderate 6-25 bpm Accelerations: 15x15 Decelerations: None NST Results: Reactive Note Ultrasound Done: KARLENE Indication: R/O rupture of membranes Total KARLENE: 8 Other Pertinent Findings: Heart Rate and Presentation (cephalic) Coding for KARLENE w/NST: Completed Exam. NST Note Note: Category 1 strip. Reactive NST. Irritability. No uterine contractions. NST Reviewed and Verified by: Amanda Valentine
[2022-12-13 08:40] VITALS: BP 122/73; PULSE 105; TEMP 36.9
== END 2022-12-13 07:50 | disposition home or self-care (01) ==
LOC: OBS 10:33 → BCD 13:55
PROVIDERS: PCP Nurse Practitioner Family; Visit Provider Obstetrics & Gynecology
DX: O26.893 Other specified pregnancy related conditions, third trimester (principal); Z3A.33 33 weeks gestation of pregnancy
CPT/HCPCS: 36415; 86850; 86900; 86901; 59025; 85025; 87081; J0290; J0456; J0702

== ENCOUNTER 2023-01-03 17:42 | Outpatient (CLI) | payer BC, SELFPAY ==
[2023-01-03 17:53] VITALS: BP 117/72; PULSE 80; RESP 16; TEMP 36.8
[2023-01-03 17:58] VITALS: BP 117/72; PULSE 80; RESP 16; TEMP 36.8
[2023-01-03 18:03] VITALS: BP 117/72; PULSE 89
--- NOTE | 2023-01-03 18:45 | OBCE_ITS ---
Date of service: 01/03/23 Time of Service: 20:00 Assessment and Plan Assessment and plan (1) Vaginal bleeding during : Status: Acute Assessment and plan: Small clot at external cervical os. No significant active bleeding. Reassuring status. (2) PROM (premature rupture of membranes): Status: Acute Assessment and plan: Pt had +ROM with story of gush of bloody fluid. Given her h/o PROM in her prior and possible ROM earlier in this , she opted for re-jany luation at [facility] [place] [place] for rupture of membranes. Given her stable status and reassuring status I feel she is appropriate to be discharged and transported by her to [facility] [place] [place]. We discussed that she will be re-evaluate there and there may be no e/o rupture so there is a potential for discharge again without delivery. She was also given the option of further observation here instead. History of Present Illness Narrative: Pt says around 5pm she had a gush of bloody fluid that wet her underwear. She sat on the toilet and had more fluid leaking. Since then (~45min) she has not had significant leaking. She has felt occasional stomach tightening throughout the day but nothing regular. Good movement. PFSH All Active Problems (Updated 01/03/23 @ 20:23 by Nida Chauhan MD) PROM (premature rupture of membranes) (Acute) Sent to [facility] [place] [place] @33wks but no further leaking and normal SSE so she was d/minoo Vaginal bleeding during (Acute) (Acute) Positive testing for group B Streptococcus (Acute) Medical History (Updated 01/03/23 @ 20:23 by Nida Chauhan MD) Anxiety Chronic fatigue and malaise onset 19yo. No clear etiology. 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 Depression (01/28/16) 11/2019. Stable EPDS=4 Family history of blood clots Mother had PE neg w/u hypercoagulable state GERD (gastroesophageal reflux disease) medications have not been entirely effective History of myocarditis History of pericarditis 2013 - viral pericarditis. Had f/u at [facility] [place] [place] in 2015. 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 ? multifactorial. 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 Neuro- ophthalmology consult & brain MRI 09/2013 which was normal per radiology report Susceptible to varicella (non-immune), currently Tobacco abuse (01/29/18) QUIT with first UTI (urinary tract infection) during Visual field loss (09/10/15) R eye Surgical History (Updated 01/03/23 @ 18:48 by Nida Chauhan MD) History of LTCS at 35 weeks with PROM Neck surgery Vein reconstruction at 1 year old S/P section 11/18/2019 low transverse delivery at 35.2 weeks EGA for SROM and transverse lie. Cesar Alcantara. Family History Mother Migraine Pulmonary embolism Rheumatoid arthritis Father Alopecia Social History Smoking/Tobacco Use Status: Former Tobacco Use Smoking risk assessment performed?: Yes Drug use: Never Household members: spouse and other Details: Javier Estevez Number of Children: 1 current occupation: [employer] Do you feel safe at home: Yes Do you feel safe in your relationship?: Yes History History 2 Para 1 Hx # Term Pregnancies 0 Multiple births 0 Hx # Pregnancies 1 Ectopic pregnancies 0 AB induced 0 Hx Number of Living Children 1 AB spontaneous 0 Past Pregnancies Del. Date GA/Weeks # Preg Succ Route Wgt Sex Labor Lgth Anesth esia Location Prov Complic 11/18/19 35 No 4 lb 15 oz Female 6H [address]M Dr. Russell Delivery Date: 11/18/19 Last Updated by: Daniela Russell M.D. SROM with transverse lie. Not amenable to external cephalic version. Maricruz Exam Const General: cooperative, healthy appearing, comfortable, no acute distress and well developed Other: Abdomen, nontender. SSE: small clot noted coming from the external os. No bright red bleeding. No pooling. ROM+ collected. Cx: /60/-3/midplane Results Last Vital Signs Temp 98.3 F 01/03/23 17:58 Pulse 80 01/03/23 17:58 Resp 16 01/03/23 17:58 BP 117/72 01/03/23 17:58 Imaging Imaging Studies: POCUS: normal appearing placenta w/out evidence of abruption. Normal KARLENE=18. Good movement. Vtx. FHT: 145bpm, +accels, neg decels, moderate variability, Cat 1. Boyce: irregular ctxs.
[2023-01-03 19:07] LABS: ROM Plus Positive
[2023-01-03 19:08] VITALS: BP 113/71; PULSE 74
[2023-01-03 19:26] VITALS: BP 113/71; RESP 16; TEMP 36.8
--- NOTE | 2023-01-03 20:51 | W.OBNST ---
Date of service: 01/03/23 Time of Service: 20:00 NST Evaluation Reason for NST Reasons for Nonstress Test: LABOR Gestational Age Gestational Age in Weeks and Days: 36 Weeks and 2Days Test and Monitor Explained Test/Monitor Explained: Test Explained, Monitor Explained and Patient Verbalized Understanding Vital Signs Blood Pressure: 117/72 Pulse: 89 Urine Results Urine Protein: Positive Urine Ketones: Negative Urine Glucose: Negative Urine Blood: Positive NST Information Date on Monitor: 01/03/23 Time on Monitor: 17:52 Date off Monitor: 01/03/23 Time off Monitor: 18:24 Total Time on Monitor: 32 NST Interventions: PO Hydration Contraction Frequency: 3-16 NST Evaluation Patient States Movement: Present FHR Baseline: 125 Variability: Moderate 6-25 bpm Accelerations: 15x15 Decelerations: None NST Results: Reactive Note Ultrasound Done: KARLENE Indication: R/O rupture of membranes Total KARLENE: 18 Coding for KARLENE w/NST: Completed Exam and Presentation Presentation Results: Vtx Coding for Presentation w/NST: Completed Exam. NST Note NST Reviewed and Verified by: Nida Chauhan
[2023-01-03 20:53] VITALS: BP 117/72; PULSE 89
== END 2023-01-03 20:32 | disposition other institution (70) ==
LOC: BCD 17:42 → OBS 17:45
PROVIDERS: PCP Nurse Practitioner Family; Visit Provider Obstetrics & Gynecology
DX: O47.03 False labor before 37 completed weeks of gestation, third trimester; Z3A.36 36 weeks gestation of pregnancy
CPT/HCPCS: 84112; 59025

== ENCOUNTER 2023-03-10 02:34 | Outpatient (CLI) | payer BC, SELFPAY ==
[2023-03-14 20:58] LABS: Phospholipid Ab, IgG <9.4 GPL; Phospholipid Ab, IgM <9.4 MPL
== END 2023-03-10 02:35 | disposition home or self-care (01) ==
LOC: LBO 02:35
PROVIDERS: PCP Nurse Practitioner Family; Visit Provider Obstetrics & Gynecology
DX: Z39.2 Encounter for routine postpartum follow-up (principal)
CPT/HCPCS: 36415; 86147

== ENCOUNTER 2023-04-24 09:22 | Outpatient (REF) | payer BC, SELFPAY ==
--- NOTE | 2023-04-24 09:19 | PAPFT_PTH ---
PATIENT: Bernie Shields LOC: N U#:[id number] AGE/SX: 27/F ROOM: RE04/24/[address]: Nida Chauhan MD : 1995 BED: DIS: 04/24/2023 SPEC #: [id number] RECD: 04/24/23 17:59 STATUS: JALEN REZeynep #: [id number] CHRIS: 04/24/23 09:[address]: Nida Chauhan DEPT: [facility] Cytology RECD BY: Olga Moody ENTERED: 04/24/23 18:00 SP TYPE: PAPFT OT DR: Kelley Peña APRN Tissues: 1 - CX/ENDOCX FOR PAP SMEARS Procedures: PAP THIN PREP/UVM Screening Comments: [id number]
== END 2023-04-24 09:23 | disposition home or self-care (01) ==
LOC: LBN 09:22
PROVIDERS: PCP Nurse Practitioner Family; Visit Provider Obstetrics & Gynecology
DX: Z12.4 Encounter for screening for malignant neoplasm of cervix (principal)
CPT/HCPCS: 88142

== ENCOUNTER 2024-04-01 11:19 | Outpatient (REF) | payer BC, SELFPAY | END 2024-04-01 11:20 | disposition home or self-care (01) | LOC: LBN 11:19 | PROVIDERS: Visit Provider Nurse Practitioner Family | DX: J02.9 Acute pharyngitis, unspecified (principal) | CPT/HCPCS: 87070 ==

== ENCOUNTER 2024-06-10 18:34 | Outpatient (REF) | payer BC, SELFPAY ==
[2024-06-10 12:10] LABS: Bilirubin Negative (Negative); Blood Negative (Negative); Clarity Clear (Clear); Glucose Negative (Negative); Ketones Negative (Negative); Leukocyte Esterase Negative (Negative); Nitrite Positive (Negative); Specific Gravity <= 1.005 (1.005-1.025); Urobilinogen 0.2 mg/dL (Up to 0.2)
[2024-06-10 12:19] LABS: Bacteria Negative HPF (Negative); C & S Indicated? Yes; Casts Negative LPF (Negative); Crystals Negative HPF (Negative); Epithelial Cells Negative HPF (Negative); Mucus Negative (Negative); RBC Negative HPF (0-2); WBC Negative HPF (0-5)
== END 2024-06-10 18:35 | disposition home or self-care (01) ==
LOC: LBN 18:34
PROVIDERS: Visit Provider Physical Therapy Assistant
DX: N39.0 Urinary tract infection, site not specified (principal); R82.89 Other abnormal findings on cytological and histological examination of urine
CPT/HCPCS: 81003; 81015; 87086

== ENCOUNTER 2024-07-12 01:46 | Emergency (ER) | payer BC, SELFPAY ==
[2024-07-12 01:48] VITALS: BP 136/96; PULSE 91; RESP 18; TEMP 36.6; O2SAT 99
--- NOTE | 2024-07-12 02:06 | ED.GENADUL_ITS ---
Discharge Plan Disposition Patient Disposition: Home Condition: Good Discharge Details Clinical Impression: UTI (urinary tract infection) Primary Care Provider: Unknown,Unknown ED Provider: Roxanne Lagos Home Meds and New Rx's Prescriptions: New cefpodoxime 200 mg tablet 200 mg PO BID Qty: 19 0RF Rx Instructions: must administer with a meal/food phenazopyridine [Pyridium] 200 mg tablet 200 mg PO TID PRNQty: 6 0RF Continued Liletta 20.4 mcg/24 hrs (8 yrs) 52 mg intrauterine device 1 device intrauterine ONCE Rx Instructions: as a single dose acetaminophen [Tylenol] 325 mg tablet 325 mg PO QID ibuprofen [Advil Liqui-Gel] 200 mg capsule 600 mg PO Q6H Discontinued PNV,calcium [id number] acid 27 mg iron- 1 mg tablet 1 tab PO DAILY Qty: 90 4RF Rx Instructions: give with food (meal/snack) phenazopyridine [Pyridium] 200 mg tablet 200 mg PO TID 0 Days Qty: 6 0RF amoxicillin 500 mg tablet 500 mg PO TID Qty: 10 0RF phenazopyridine [Pyridium] 200 mg tablet 200 mg PO TID Qty: 6 0RF Discharge Instructions Instructions: Urinary Tract Infection, Adult ED Additional Instructions: Please take the antibiotic twice a day for the next 10 days. Because you just recently had a UTI, I have prescribed a stronger antibiotic for a longer period of time. Phenazopyridine up to three times a day for symptoms for the next 2 days. Your symptoms should start to improve after 48 hours. If you are not beginning to feel better by then, please seek medical attention. Call your primary care doctor in the morning to schedule an appointment to followup on your visit here. Return to the emergency department for new or worsenign symptoms including fevers, chills, nausea/vomiting, flank pain, or if you have any other concerns. Stand Alone Forms: Work Release HPI General Mode of arrival: ambulatory . Date/Time Provider Initiated Documentation: 07/12/24 01:57 . Limitations to Documentation: no limitations . Information obtained by: patient and old records reviewed . HPI Narrative: 29yo F with hx frequent UTIs presenting for symptoms consistent with prior UTIs. Typically gets them 3-4 times a year. Most recently had urinary symptoms about one month ago (early May, not sure exactly when) and was prescribed course of nitrofurantoin which seemed to help. Symptoms recurred yesterday and have been worsening; urinary burning, frequency and urgency. Mild suprapubic discomfort. No vaginal discharge. No fevers, chills, nausea, vomiting, or flank pain. Otherwise in her usual state of health. Related Data Home Medications ?Medication ?Instructions ?Recorded ?Confirmed acetaminophen 325 mg tablet 325 mg PO QID 01/20/23 07/12/24 (Tylenol) ibuprofen 200 mg capsule (Advil 600 mg PO Q6H 01/20/23 07/12/24 Liqui-Gel) levonorgestrel 20.4 mcg/24 hr (up 1 device intrauterine ONCE 03/10/23 07/12/24 to 8 yrs) 52 mg intrauterine device (Liletta) cefpodoxime 200 mg tablet 200 mg PO BID #19 tabs 07/12/24 phenazopyridine 200 mg tablet 200 mg PO TID PRN #6 tabs 07/12/24 (Pyridium) Previous Rx's ?Medication ?Instructions ?Recorded cefpodoxime 200 mg tablet 200 mg PO BID #19 tabs 07/12/24 phenazopyridine 200 mg tablet 200 mg PO TID PRN #6 tabs 07/12/24 (Pyridium) Allergies Allergy/AdvReac Type Severity Reaction Status Date / Time capsaicin AdvReac Severe burning/itc Verified 04/24/23 08:55 ivania General Stated Complaint: Urinary CAPRI: 4 Review of Systems Narrative: see HPI Exam Narrative Exam Narrative: General: Alert, well appearing, well nourished, in no acute distress. Head: Normocephalic, atraumatic Neck: Trachea midline, ?Neck supple. Cardiac: ?No cyanosis. Resp: No respiratory distress. Speaking in full sentences. . Abd: ?Soft, non-distended, nontender : ?No suprapubic tenderness. No CVA tenderness. Neurologic: GCS 15. ? Moves all extremities freely against gravity Course Vital Signs Vital signs: Vital Signs Temperature 36.6 C 07/12/24 01:48 Pulse 91 H 07/12/24 01:48 Respiratory Rate 18 07/12/24 01:48 Blood Pressure 136/96 H 07/12/24 01:48 Pulse Oximetry 99 07/12/24 01:48 Temperature 36.6 C 07/12/24 01:48 Pulse 91 H 07/12/24 01:48 Respiratory Rate 18 07/12/24 01:48 Respiratory Effort Normal 07/12/24 01:51 Blood Pressure 136/96 H 07/12/24 01:48 Blood Pressure Position Sitting 07/12/24 01:48 Pulse Oximetry 99 07/12/24 01:48 Medical Decision Making 29yo F with hx frequent UTIs presenting for symptoms consistent with prior UTIs. Typically gets them 3-4 times a year, most recently had urinary symptoms about one month ago (early May, not sure exactly when) and was prescribed course of nitrofurantoin. Yesterday began with dysuria/urgency/frequency and saeed prapubic discomfort. Vital signs reassuring on arrival (slightly tachycardiac at 91 after ambulating into triage, pulse 70's on my assessment without intervention). Very well appearing on exam, not concerning for sepsis. No flank pain or CVA tenderness to suggest pyelonephritits. Given pt states identical to prior UTIs, would not workup for STI at this time. She does say that her outpatient provider are aware of the frequency of her urinary infections and are attempting to determine why this is occurring. UA suggestive of infection; sent for culture. Prior urine cultures here have frequently shown kraft-sensitive e.coli. Will treat as complicated cystitis given recent UTI with 10 day course of cefpodoxime, 2 days of pyridium. Discharged home to outpatient followup; discharge instructions and return precautions were reviewed with patient who verbalized understanding. All questions were answered and she is in full agreement with the plan. Medical Records Medical records reviewed: Yes I reviewed the patient's medical records. Medical records narrative: urine culture results Lab Data Lab results reviewed: Yes I reviewed the patient's lab results. Labs: 07/12/24 02:00 Urine - Reflex from Ua Urine Culture - Pending Laboratory Tests Range/Units 07/12/24 02:00 Urine Color (Yellow) Yellow Urine Clarity (Clear) Clear Urine pH (5-8) 6.0 Ur Specific Cut Off (1.005-1.025) 1.020 Urine Protein (Neg-Trace) mg/dL Negative Urine Ketones (Negative) mg/dL Negative Urine Blood (Negative) Trace-intact H Urine Nitrite (Negative) Positive H Urine Bilirubin (Negative) Negative Urine Urobilinogen (Up to 0.2) mg/dL 0.2 Ur Leukocyte Esterase (Negative) Large H Urine RBC (0-2) HPF 3-5 H Urine WBC (0-5) HPF >50 H Ur Epithelial Cells (Negative) HPF Few Urine Crystals (Negative) HPF Negative Urine Bacteria (Negative) HPF Few Urine Casts (Negative) LPF Negative Urine Mucus (Negative) Negative Ur Culture Indicated? Yes Urine Glucose (Negative) mg/dL Negative Quality:SDOH Health Related Social Needs: No Data to Display PFSH All Active Problems (Updated 07/12/24 @ 02:19 by Roxanne Lagos MD) UTI (urinary tract infection) (Acute) 05/2023. Didnt take Nitrofurantoin 08/08/23. Rx amoxicillin Lupus anticoagulant disorder (Acute) Hx amarousis fugax. Indeterminant Lupus anticoag. 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 Sukumar level elevated. Other testing neg. Medical History (Updated 07/12/24 @ 02:19 by Roxanne Lagos MD) Presence of IUD Liletta IUD placed 03/10/23 History of pericarditis 2013 - viral pericarditis. Had f/u at [facility] in 2015. Intermittently elevated antiphosolipid Abs History of myocarditis Depression (01/28/16) 11/2019. 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 ? multifactorial. GERD (gastroesophageal reflux disease) medications have not been entirely effective Anxiety Chronic fatigue and malaise onset 19yo. No clear etiology. 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 Surgical History (Updated 01/21/23 @ 10:18 by Daniela Russell MD) History of LTCS at 35 weeks with PROM S/P section 11/18/2019 low transverse delivery at 35.2 weeks EGA for SROM and transverse lie. Cesar Alcantara. 01/06/23 rLTCS. 36w5d 3rd trimester bleeding. 6lb5oz. Jaime Neck surgery Vein reconstruction at 1 year old Family History Mother Migraine Pulmonary embolism Rheumatoid arthritis Father Alopecia Social History Smoking/Tobacco Use Status: Former Tobacco Use Smoking risk assessment performed?: Yes Drug use: Never Household members: spouse and other Details: Javier Estevez Number of Children: 1 current occupation: [employer] Do you feel safe at home: Yes Do you feel safe in your relationship?: Yes History History 2 Para 2 Hx # Term Pregnancies Multiple births 0 Hx # Pregnancies 2 Ectopic pregnancies 0 AB induced 0 Hx Number of Living Children 2 AB spontaneous 0 Past Pregnancies Del. Date GA/Weeks # Preg Succ Route Wgt Sex Labor Lgth Anesth esia Location Prov [facility] 11/18/19 35 No 2239.612 g Female 6H [address]M Dr. Russell 01/06/23 36 No Yes 2870 g Male [facility] Delivery Date: 11/18/19 Last Updated by: Daniela Russell M.D. SROM with transverse lie. Not amenable to external cephalic version. [facility] Delivery Date: 01/06/23 Last Updated by: Daniela Russell MD abruption. no tubal. Jaime
[2024-07-12 02:13] LABS: Bilirubin Negative (Negative); Blood Trace-intact (Negative); Clarity Clear (Clear); Glucose Negative (Negative); Ketones Negative (Negative); Leukocyte Esterase Large (Negative); Nitrite Positive (Negative); Urobilinogen 0.2 mg/dL (Up to 0.2)
[2024-07-12 02:16] LABS: Bacteria Few HPF (Negative); Casts Negative LPF (Negative); Crystals Negative HPF (Negative); Epithelial Cells Few HPF (Negative); Mucus Negative (Negative); WBC >50 HPF (0-5)
[2024-07-12 02:17] LABS: C & S Indicated? Yes
[2024-07-12] MEDS: Cefpodoxime 200 MG TAB PO (02:22)
== END 2024-07-12 02:27 | disposition home or self-care (01) ==
PROVIDERS: Emergency Provider Student in an Organized Health Care Education/Training Program
DX: R30.0 Dysuria (principal); R35.0 Frequency of micturition; M54.50 Low back pain, unspecified; N39.0 Urinary tract infection, site not specified
CPT/HCPCS: 87077; 99283; 81003; 81015; 87086; 87186

== ENCOUNTER 2024-07-19 15:30 | Emergency (ER) | payer BC, SELFPAY ==
[2024-07-19 15:34] VITALS: BP 134/94; PULSE 94; RESP 16; TEMP 36.4; O2SAT 98
--- NOTE | 2024-07-19 15:48 | W.ED.GENAD ---
Discharge Plan Disposition Patient Disposition: Home Condition: Stable Discharge Details Clinical Impression: Itching of vagina Primary Care Provider: None,None ED Provider: Khadra Stevens Home Meds and New Rx's Prescriptions: New fluconazole 150 mg tablet 150 mg PO Q3D Qty: 2 0RF Rx Instructions: may repeat second dose 72 hrs after first dose if symptoms persist No Action Liletta 20.4 mcg/24 hrs (8 yrs) 52 mg intrauterine device 1 device intrauterine ONCE Rx Instructions: as a single dose acetaminophen [Tylenol] 325 mg tablet 325 mg PO QID ibuprofen [Advil Liqui-Gel] 200 mg capsule 600 mg PO Q6H cefpodoxime 200 mg tablet 200 mg PO BID Qty: 19 0RF Rx Instructions: must administer with a meal/food phenazopyridine [Pyridium] 200 mg tablet 200 mg PO TID PRNQty: 6 0RF Discharge Instructions Instructions: Vulvovaginal yeast infection Additional Instructions: Please do not take the monistat anymore. Take the Diflucan in 3 days if symptoms have not resolved. A culture for infection is pending at this time usually takes 2 to 3 days to result we will call you if it is positive and you need additional antibiotics. Wear loosefitting clothing, you may try Desitin which she can get [id number] if this seems to help. Increase oral fluids, continue to take a probiotic or yogurt daily. Follow up with primary care provider in 3-5 days. Return to ED sooner if any worsening or concerns. Please take Tylenol or Ibuprofen with food every 4-6 hours as needed for pain and swelling. Referrals: Primary Care Provider [Outside] - 5 days Discharge Data Discharge Date/Time-TO BE ENTERED AT DEPARTURE: 07/19/24 16:33 HPI General Mode of arrival: ambulatory. Date/Time Provider Initiated Documentation: 07/19/24 15:37. Limitations to Documentation: no limitations. Information obtained by: patient, RN notes reviewed and old records reviewed. HPI Narrative: 29-year-old female presents to the ER with a chief complaint of vaginal burning and itching. She was diagnosed with UTI a week ago and was placed on cefpodoxime which she is still currently taking. She did use Monistat today at noon and now she has increased burning to the area. She reports clear discharge. She has been taking yogurt daily. She has an IUD. She has no abdominal pain no nausea vomiting diarrhea or any other associated symptoms. Related Data Home Medications ?Medication ?Instructions ?Recorded ?Confirmed acetaminophen 325 mg tablet 325 mg PO QID 01/20/23 07/19/24 (Tylenol) ibuprofen 200 mg capsule (Advil 600 mg PO Q6H 01/20/23 07/19/24 Liqui-Gel) levonorgestrel 20.4 mcg/24 hr (up 1 device intrauterine ONCE 03/10/23 07/19/24 to 8 yrs) 52 mg intrauterine device (Liletta) cefpodoxime 200 mg tablet 200 mg PO BID #19 tabs 07/12/24 07/19/24 phenazopyridine 200 mg tablet 200 mg PO TID PRN #6 tabs 07/12/24 07/19/24 (Pyridium) fluconazole 150 mg tablet 150 mg PO Q3D Vaginal candidasis 2 07/19/24 doses #2 tabs Previous Rx's ?Medication ?Instructions ?Recorded cefpodoxime 200 mg tablet 200 mg PO BID #19 tabs 07/12/24 phenazopyridine 200 mg tablet 200 mg PO TID PRN #6 tabs 07/12/24 (Pyridium) fluconazole 150 mg tablet 150 mg PO Q3D Vaginal candidasis 2 07/19/24 doses #2 tabs Allergies Allergy/AdvReac Type Severity Reaction Status Date / Time capsaicin AdvReac Severe burning/itc Verified 07/19/24 15:37 ivania 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 Appears stated age. Normal body habitus. Head: Normocephalic, no trauma. Eyes: Pupils PERRL, Red reflex noted, EOM's intact. Eyelids symmetrical without lesions, discharge, or swelling. Chest: RRR, Normal S1, S2, distal pulses intact. Resp: Lungs clear to auscultation bilaterally, no wheezes, rales, or rhonchi. Abdomen: Soft, non-distended, Normoactive bowel sounds all 4 quads. Nontender palpation all 4 quadrants. Musculoskeletal: Normal gait, Moves all 4 extremities without difficulty. Skin: No suspicious rashes or lesions. Capillary refill less than 2 sec. Hematologic/Lymphatic: No ecchymosis, no lymphadenopathy. Course Vital Signs Vital signs: Vital Signs Temperature 36.4 C 07/19/24 15:34 Pulse 94 H 07/19/24 15:34 Respiratory Rate 16 07/19/24 15:34 Blood Pressure 134/94 H 07/19/24 15:34 Pulse Oximetry 98 07/19/24 15:34 Temperature 36.4 C 07/19/24 15:34 Temperature Source Oral 07/19/24 15:34 Pulse 94 H 07/19/24 15:34 Respiratory Rate 16 07/19/24 15:34 Blood Pressure 134/94 H 07/19/24 15:34 Blood Pressure Position Sitting 07/19/24 15:34 Pulse Oximetry 98 07/19/24 15:34 Oxygen Delivery Method Room Air 07/19/24 15:34 Oxygen Flow Rate 0 07/19/24 15:34 Pain Level 9 07/19/24 15:34 Medical Decision Making 29-year-old female presents to the ER with a chief complaint of vaginal burning and itching. She was diagnosed with UTI a week ago and was placed on cefpodoxime which she is still currently taking. She did use Monistat today at noon and now she has increased burning to the area. She reports clear discharge. She has been taking yogurt daily. She has an IUD. She has no abdominal pain no nausea vomiting diarrhea or any other associated symptoms. Will obtain a urine specimen for GC chlamydia, will give Diflucan 150 mg p.o. here, check urine , and sent home with 1 to 2 additional doses of Diflucan if needed. Discussed follow-up care with patient who verbalized understanding. This text was generated using [employer] OLED[employer] system, please disregard any oddities of phrase or misspellings. Quality:SDOH Health Related Social Needs: No Data to Display PFSH All Active Problems (Updated 07/19/24 @ 15:52 by Khadra Stevens NP) Itching of vagina (Acute) UTI (urinary tract infection) (Acute) 05/2023. Didnt take Nitrofurantoin 08/08/23. Rx amoxicillin Lupus anticoagulant disorder (Acute) Hx amarousis fugax. Indeterminant Lupus anticoag. 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 Sukumar level elevated. Other testing neg. Medical History Presence of IUD Liletta IUD placed 03/10/23 History of pericarditis 2013 - viral pericarditis. [place] [facility] [place] Intermittently elevated antiphosolipid Abs History of myocarditis Depression (01/28/16) 11/2019. 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 ? multifactorial. GERD (gastroesophageal reflux disease) medications have not been entirely effective Anxiety Chronic fatigue and malaise onset 19yo. No clear etiology. 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 Surgical History History of LTCS at 35 weeks with PROM S/P section 11/18/2019 low transverse delivery at 35.2 weeks EGA for SROM and transverse lie. Cesar Alcantara. 01/06/23 rLTCS. 36w5d 3rd trimester bleeding. 6lb5oz. Jaime Neck surgery Vein reconstruction at 1 year old Family History Mother Migraine Pulmonary embolism Rheumatoid arthritis Father Alopecia Social History Smoking/Tobacco Use Status: Former Tobacco Use Smoking risk assessment performed?: Yes Alcohol Intake: current Alcohol Intake frequency: holidays/special occasions only Drug use: Never Substance use type: marijuana Household members: spouse and other Details: Javier Estevez Number of Children: 1 current occupation: [employer] Do you feel safe at home: Yes Do you feel safe in your relationship?: Yes History History 2 Para 2 Hx # Term Pregnancies Multiple births 0 Hx # Pregnancies 2 Ectopic pregnancies 0 AB induced 0 Hx Number of Living Children 2 AB spontaneous 0 Past Pregnancies Del. Date GA/Weeks # Preg Succ Route Wgt Sex Labor Lgth Anesthesia Location Prov [facility] 11/18/19 35 No 2239.612 g Female 6H [address]M Dr. Russell 01/06/23 36 No Yes 2870 g Male [facility] [place] Date: 11/18/19 Last Updated by: Daniela Russell M.D. SROM with transverse lie. Not amenable to external cephalic version. [facility] Delivery Date: 01/06/23 Last Updated by: Daniela Russell MD abruption. no tubal. Jaime
[2024-07-19 16:28] VITALS: BP 138/84; PULSE 70; RESP 16; TEMP 36.7; O2SAT 100
[2024-07-19] MEDS: Fluconazole 150 MG TAB PO (16:28)
[2024-07-22 11:42] LABS: Chlamydia Result Negative (Negative); GC Result Negative (Negative)
== END 2024-07-19 16:33 | disposition home or self-care (01) ==
LOC: ER 16:19
PROVIDERS: Emergency Provider Registered Nurse Emergency
DX: N89.8 Other specified noninflammatory disorders of vagina
CPT/HCPCS: 81025; 87491; 87591; 99283; 99284

== ENCOUNTER 2024-08-31 10:59 | Outpatient (REF) | payer BC, SELFPAY ==
[2024-08-31 15:49] LABS: Bilirubin Negative (Negative); Blood Negative (Negative); Clarity Clear (Clear); Glucose Negative (Negative); Ketones Negative (Negative); Leukocyte Esterase Negative (Negative); Nitrite Negative (Negative); Specific Gravity >= 1.030 (1.005-1.025); Urobilinogen 0.2 mg/dL (Up to 0.2); pH 5.5 (5-8)
== END 2024-08-31 11:00 | disposition home or self-care (01) ==
LOC: LBN 10:59
PROVIDERS: Visit Provider Nurse Practitioner Family
DX: N39.0 Urinary tract infection, site not specified (principal); B96.29 Other Escherichia coli [E. coli] as the cause of diseases classified elsewhere
CPT/HCPCS: 81003

== ENCOUNTER 2025-07-16 20:00 | Outpatient (REF) | payer BC, SELFPAY | END 2025-07-16 20:01 | disposition home or self-care (01) | LOC: LBN 20:00 | PROVIDERS: PCP Nurse Practitioner Family; Visit Provider Physician Assistant | DX: R30.0 Dysuria (principal) | CPT/HCPCS: 87480; 87510; 87660 ==

== ENCOUNTER 2025-07-17 13:56 | Outpatient (REF) | payer BC, SELFPAY ==
[2025-07-18 11:04] LABS: Chlamydia Result Negative (Negative); GC Result Negative (Negative)
== END 2025-07-17 13:57 | disposition home or self-care (01) ==
LOC: LBN 13:56
PROVIDERS: PCP Nurse Practitioner Family; Visit Provider Advanced Practice Midwife
DX: N89.8 Other specified noninflammatory disorders of vagina
CPT/HCPCS: 87491; 87591; 87480; 87510; 87660